=== PATIENT | female | born 1975 | race Caucasian/White ===

== ENCOUNTER 2017-02-20 17:40 | Emergency (ER) | payer SELFPAY ==
[2017-02-20] MEDS ORDERED: KETOROLAC TROMETHAMINE INJ 30 MG/ML VIAL IV ONE (18:04)
--- NOTE | 2017-02-20 18:07 | ED.PDOC ---
History of Present Illness - General Source: patient, RN notes reviewed, Vital Signs reviewed Exam Limitations: no limitations - History of Present Illness Initial Comments: Patient reports mid back pain for the past week. Left > Right. Denies any other symptoms. No fever, chills, [place], N/V/D, abd pain, urinary symptoms, numbness, tingling or weakness. Saw the chiropractor today and now pain is much worse. Timing/Duration: 1 week Quality/Severity: severe Back Pain Location: paraspinous muscles - CVA's Back Pain Radiation: other - None Method of Injury/Prior Injury: unknown Improving Factors: nothing Worsening Factors: movement, other - Deep breathing Associated Symptoms: muscle spasms <Coleen Eldridge - Last Filed: 02/20/17 18:56> <Swati Pierre - Last Filed: 02/20/17 20:22> - General Chief Complaint: Back Pain or Injury Stated Complaint: back pain Time Seen by Provider: 02/20/17 17:58 - History of Present Illness Allergies/Adverse Reactions: Allergies Diphenhydramine [From Benadryl] Allergy (Verified 02/20/17 17:54) Home Medications: Ambulatory Orders Lisinopril 10 mg PO DAILY 05/25/14 Norgestrel & Ethinyl Estradiol [Cryselle-28 0.3-30 mg-Mcg] 1 tab PO DAILY Ondansetron [Zofran Odt] 4 mg PO Q4H PRN #10 tab 05/11/16 Promethazine Tab [Phenergan Tablet] 25 mg PO Q6H PRN #10 tab 05/11/16 Cyclobenzaprine HCl [Flexeril] 10 mg PO TID PRN #30 tab 02/20/17 Ketorolac Tromethamine [Toradol Tabs] 10 mg PO Q6H PRN #20 tab 02/20/17 Review of Systems - Review of Systems Constitutional: States: no symptoms reported. Denies: chills, fever EENTM: States: no symptoms reported Respiratory: States: no symptoms reported. Denies: cough, short of breath Cardiology: States: no symptoms reported. Denies: chest pain, palpitations Gastrointestinal/Abdominal: States: no symptoms reported. Denies: abdominal pain, diarrhea, nausea, vomiting Genitourinary: States: no symptoms reported. Denies: dysuria, frequency, hematuria, pain Musculoskeletal: States: back pain Skin: States: no symptoms reported Neurological: States: no symptoms reported. Denies: headache, numbness, paresthesia, tingling, tremors, weakness <RichahollandColeen - Last Filed: 02/20/17 18:56> Past Medical History (General) - Patient Medical History Hx Hypertension: Yes Hx Diabetes: No Surgical History: no surgical history - Vaccination History Hx Tetanus, Diphtheria Vaccination: No Hx Influenza Vaccination: No Hx Pneumococcal Vaccination: No - Social History Hx Tobacco Use: No Hx Alcohol Use: No Hx Substance Use: No Hx Substance Use Treatment: No Hx Depression: No - Activities of Daily Living Hospice Agency (if applicable):: None - Female History Patient is a Female of Child Bearing Age (10 -59 yrs old): No Hx Last Menstrual Period: 04/20/14 Patient : No <Coleen Eldridge - Last Filed: 02/20/17 18:56> Family Medical History - Family History Mother Family History: No Known <JazmynColeen Last Filed: 02/20/17 18:56> Physical Exam - Physical Exam General Appearance: Agitated, Well Developed, Well Groomed, Well Hydrated, Well Nourished, Other - in obvious pain Neck Exam: non-tender, full range of motion, normal alignment, normal inspection Cardiovascular/Respiratory: regular rate, rhythm, no M/R/G, normal peripheral pulses, normal breath sounds, no respiratory distress Peripheral Pulses: dorsalis pedis,right: 2+, dorsalis pedis,left: 2+ Gastrointestinal/Abdominal: normal bowel sounds, non tender, soft, no organomegaly, no pulsatile mass Back Exam: no vertebral tenderness, CVA tenderness (L), muscle spasm Extremity Exam: no evidence of injury, normal range of motion, non-tender Neurologic: no motor/sensory deficits, alert, normal mood/affect, oriented x 3 Skin Exam: normal color, warm/dry <Coleen Eldridge - Last Filed: 02/20/17 18:56> Progress - Progress Progress: 02/20/17 18:38 Patient feeling better after the Toradol but has not tried to move. Had her take a slow deep breath and pain came back. This suggest a muscular cause of pain. Will given Flexeril while awaiting lab results. I urine has blood will need CT to r/o kidney stone but does not seem to be that. 02/20/17 18:[address] Pierre <Coleen Eldridge - Last Filed: 02/20/17 18:56> - Progress Progress: 02/20/17 20:16 Patient was doing much better after the Flexeril and was able to move and breathe without the severe pain she had previously. Although her urine had some blood in it, she is now on her period which would explain that. Since she had good results with Flexeril, I will send her home with a prescription for Toradol and Flexeril and give her 2 days off from work. I do not want her bending or twisting or lifting anything heavy, although I have asked her to be sure and get up and walk around and not stay in bed all day because of the pain. If the pain persists, she will follow up with her PCP. If it worsens, she will return to the ED. - Results/Orders Results/Orders: 02/20/17 02/20/17 02/20/17 17:45 19:00 20:16 Temperature 98.8 F Pulse Rate [ 89 62 60 pulse ox] Respiratory 20 16 20 Rate Blood Pressure 130/67 106/70 109/73 [Left Arm] O2 Sat by Pulse 96 94 L Oximetry 02/20/17 18:04 IV Care:Saline Lock per Protoc QSHIFT Laboratory Results WBC 8.9 K/mm3 (4.8-10.8) 02/20/17 18:25 RBC 4.99 M/mm3 (4.20-5.40) 02/20/17 18:25 Hgb 14.6 gm/dL (12.0-16.0) 02/20/17 18:25 Hct 43.0 % (36.0-47.0) 02/20/17 18:25 MCV 86.2 fl (81.0-99.0) 02/20/17 18:25 MCH 29.3 pg (27.0-31.0) 02/20/17 18:25 MCHC 34.0 g/dL (33.0-37.0) 02/20/17 18:25 RDW 12.6 % (11.5-14.5) 02/20/17 18:25 Plt Count 278 K/mm3 (130-400) 02/20/17 18:25 MPV 8.8 fl (7.40-10.4) 02/20/17 18:25 Absolute Neuts (auto) 5.40 K/uL (1.8-6.8) 02/20/17 18:25 Absolute Lymphs (auto) 2.60 K/uL (1.0-3.4) 02/20/17 18:25 Absolute Monos (auto) 0.70 K/uL (0.2-0.8) 02/20/17 18:25 Absolute Eos (auto) 0.10 K/uL (0.0-0.4) 02/20/17 18:25 Absolute Basos (auto) 0.10 K/uL (0.0-0.1) 02/20/17 18:25 Neutrophils % 61.2 % (42.0-78.0) 02/20/17 18:25 Lymphocytes % 29.0 % (20.0-50.0) 02/20/17 18:25 Monocytes % 8.2 % (2.0-9.0) 02/20/17 18:25 Eosinophils % 0.8 % (1.0-5.0) L 02/20/17 18:25 Basophils % 0.8 % (0.0-2.0) 02/20/17 18:25 Sodium 139 mmol/L (135-145) 02/20/17 18:25 Potassium 3.3 mmol/L (3.6-5.0) L 02/20/17 18:25 Chloride 103 mmol/L (101-111) 02/20/17 18:25 Carbon Dioxide 30 mmol/L (21-31) 02/20/17 18:25 Anion Gap 9.3 (12-18) L 02/20/17 18:25 BUN 12 mg/dL (7-18) 02/20/17 18:25 Creatinine 0.80 mg/dL (0.6-1.3) 02/20/17 18:25 BUN/Creatinine Ratio 15.0 (10-20) 02/20/17 18:25 Random Glucose 110 mg/dL (70-105) H 02/20/17 18:25 Serum Osmolality 277.9 mOsm/L (275-295) 02/20/17 18:25 Calcium 9.9 mg/dL (8.4-10.2) 02/20/17 18:25 Total Bilirubin 0.6 mg/dL (0.2-1.0) 02/20/17 18:25 AST 22 IU/L (10-42) 02/20/17 18:25 ALT 22 IU/L (10-60) 02/20/17 18:25 Alkaline Phosphatase 47 IU/L (42-121) 02/20/17 18:25 Serum Total Protein 7.4 gm/dL (6.4-8.2) 02/20/17 18:25 Albumin 4.2 g/dl (3.2-5.5) 02/20/17 18:25 Globulin 3.2 gm/dL (2.3-3.5) 02/20/17 18:25 Albumin/Globulin Ratio 1.3 (1.1-1.9) 02/20/17 18:25 Urine Color Yellow (Yellow) 02/20/17 19:25 Urine Appearance Clear (Clear) 02/20/17 19:25 Urine pH 7.0 (4.5-7.8) 02/20/17 19:25 Ur Specific [place] 1.020 (1.005-1.030) 02/20/17 19:25 Urine Protein Negative mg/dL 02/20/17 19:25 Urine Glucose (UA) Negative mg/dL (Negative) 02/20/17 19:25 Urine Ketones Negative mg/dL (NEGATIVE) 02/20/17 19:25 Urine Blood Moderate (Negative) H 02/20/17 19:25 Urine Nitrite Negative 02/20/17 19:25 Urine Bilirubin Negative (NEGATIVE) 02/20/17 19:25 Urine Urobilinogen 0.2 mg/dL (0.2-1.0) 02/20/17 19:25 Ur Leukocyte Esterase Negative (Negative) 02/20/17 19:25 Urine RBC 3-5 /hpf H 02/20/17 19:25 Urine WBC 0 /hpf 02/20/17 19:25 Ur Epithelial Cells 0-1 /hpf 02/20/17 19:25 Amorphous Sediment Trace 02/20/17 19:25 Urine Bacteria 0 02/20/17 19:25 <Swati Pierre K - Last Filed: 02/20/17 20:22> Departure <Folden,Coleen - Last Filed: 02/20/17 18:56> - Departure Time of Disposition: 20:19 Diet: resume usual diet <PierreSwati - Last Filed: 02/20/17 20:22> - Departure Clinical Impression: Muscle spasm of back Back pain Qualifiers: Back pain location: thoracic back pain Back pain laterality: bilateral Qualified Code(s): M54.6 - Pain in thoracic spine Disposition: Discharge to Home or Self Care Condition: Fair Departure Forms: ED Discharge - Pt. Copy, Patient Portal Self Enrollment Instructions: DI for Back Strain or Sprain Referrals: Reymundo Fried MD [Primary Care Provider] - 1-2 Weeks Prescriptions: Cyclobenzaprine HCl [Flexeril] 10 mg PO TID PRN #30 tab PRN Reason: Muscle Spasms Ketorolac Tromethamine [Toradol Tabs] 10 mg PO Q6H PRN #20 tab PRN Reason: Pain Home Medications: Ambulatory Orders Lisinopril 10 mg PO DAILY 05/25/14 Norgestrel & Ethinyl Estradiol [Cryselle-28 0.3-30 mg-Mcg] 1 tab PO DAILY Ondansetron [Zofran Odt] 4 mg PO Q4H PRN #10 tab 05/11/16 Promethazine Tab [Phenergan Tablet] 25 mg PO Q6H PRN #10 tab 05/11/16 Cyclobenzaprine HCl [Flexeril] 10 mg PO TID PRN #30 tab 02/20/17 Ketorolac Tromethamine [Toradol Tabs] 10 mg PO Q6H PRN #20 tab 02/20/17
[2017-02-20] MEDS: ONDANSETRON INJ 4 MG/2 ML VIAL IV ONE ×2 (18:14)
[2017-02-20] MEDS ORDERED: CYCLOBENZAPRINE HCL 10 MG TAB PO ONE (18:38)
[2017-02-20] MEDS ORDERED: CYCLOBENZAPRINE TAB (ER DISP) 10 MG TAB PO ONE (20:19)
[2017-02-20 20:58] VITALS: BP 99/63; TEMP 98.5; O2SAT 96
== END 2017-02-20 20:46 | disposition home or self-care (01) ==
LOC: ER 17:40
DX: M54.6 Pain in thoracic spine (principal); M62.830 Muscle spasm of back; I10 Essential (primary) hypertension; Z79.899 Other long term (current) drug therapy; Z88.8 Allergy status to other drugs, medicaments and biological substances
CPT/HCPCS: 36415; 80053; 81001; 85025; J1885; J2405

== ENCOUNTER 2018-06-17 17:29 | Emergency (ER) | payer SELFPAY ==
--- NOTE | 2018-06-17 18:03 | ED.PDOC ---
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 Timing/Duration: just prior to arrival Severity: mild Location: hands - right index finger Improving Factors: rest Worsening Factors: movement Associated Symptoms: other - pain Allergies/Adverse Reactions: Allergies Diphenhydramine [From Benadryl] Allergy (Verified 02/20/17 17:54) Home Medications: Ambulatory Orders Lisinopril 10 mg PO DAILY 05/25/14 Norgestrel & Ethinyl Estradiol [Cryselle-28 0.3-30 mg-Mcg] 1 tab PO DAILY Ondansetron [Zofran Odt] 4 mg PO Q4H PRN #10 tab 05/11/16 Promethazine Tab [Phenergan Tablet] 25 mg PO Q6H PRN #10 tab 05/11/16 Cyclobenzaprine HCl [Flexeril] 10 mg PO TID PRN #30 tab 02/20/17 Ketorolac Tromethamine [Toradol Tabs] 10 mg PO Q6H PRN #20 tab 02/20/17 Review of Systems - Review of Systems Constitutional: States: no symptoms reported EENTM: States: no symptoms reported Respiratory: States: no symptoms reported Cardiology: States: no symptoms reported Gastrointestinal/Abdominal: States: no symptoms reported Skin: States: see HPI Neurological: States: no symptoms reported Past Medical History (General) - Patient Medical History Hx Stroke: No Hx of COPD: No Hx Cardiac Disorders: No Hx Hypertension: No Hx Thyroid Disease: No Hx Diabetes: No Hx Cancer: No Surgical History: tonsillectomy - Vaccination History Hx Tetanus, Diphtheria Vaccination: No Hx Influenza Vaccination: No Hx Pneumococcal Vaccination: No Immunizations Up to Date: Yes - Social History Hx Tobacco Use: No Hx Alcohol Use: No Hx Substance Use: No Hx Substance Use Treatment: No Hx Depression: No - Female History Patient is a Female of Child Bearing Age (10 -59 yrs old): Yes Hx Last Menstrual Period: 06/01/18 Patient : No - Triage Comment ED Triage Comment: Alert, holding pressure to rt finger. Family Medical History - Family History Mother Family History: No Known Physical Exam - Physical Exam General Appearance: Alert, Comfortable, No apparent distress Eyes, Ears, Nose, Throat Exam: normal ENT inspection Neck: supple Cardiovascular/Chest: normal peripheral pulses, regular rate, rhythm, no murmur Respiratory: lungs clear, normal breath sounds Gastrointestinal/Abdominal: non tender, soft Back Exam: normal inspection, no CVA tenderness Extremity: no pedal edema, no calf tenderness Neurologic: no motor/sensory deficits, alert, oriented x 3 Skin Exam: warm/dry, normal color Skin Problem Location: other - right index finger Skin Character: other - 2 cm laceration Progress - Progress Progress: 06/17/18 18:05 Vital Signs - 8 hr 06/17/18 17:38 Temperature 97.8 F Pulse Rate [ 89 monitor] Respiratory 22 Rate Blood Pressure 131/75 [Left Arm] O2 Sat by Pulse 98 Oximetry Departure - Departure Clinical Impression: Laceration of finger of right hand Qualifiers: Encounter type: initial encounter Finger: index finger Damage to nail status: without damage Foreign body presence: without foreign body Qualified Code(s): S61.210A - Laceration without foreign body of right index finger without damage to nail, initial encounter Time of Disposition: 18:50 Disposition: Discharge to Home or Self Care Condition: Fair Departure Forms: ED Discharge - Pt. Copy, Patient Portal Self Enrollment Instructions: DI for Laceration Repair, DI for Laceration Repair -- Simple, DI for Wound Infection Referrals: Reymundo Fried MD [Primary Care Provider] - 1-2 Weeks Home Medications: Ambulatory Orders Lisinopril 10 mg PO DAILY 05/25/14 Norgestrel & Ethinyl Estradiol [Cryselle-28 0.3-30 mg-Mcg] 1 tab PO DAILY Ondansetron [Zofran Odt] 4 mg PO Q4H PRN #10 tab 05/11/16 Promethazine Tab [Phenergan Tablet] 25 mg PO Q6H PRN #10 tab 05/11/16 Cyclobenzaprine HCl [Flexeril] 10 mg PO TID PRN #30 tab 02/20/17 Ketorolac Tromethamine [Toradol Tabs] 10 mg PO Q6H PRN #20 tab 02/20/17 Additional Instructions: Removal of 2017 [facility];May take ALEVE(over the counter )1-2 tablet by mouth am/pm for pain as needed
[2018-06-17] MEDS ORDERED: TETANUS,DIPHTHERIA,PERTUSSIS 1 EA SYG IM ONE (18:05)
[2018-06-17] MEDS ORDERED: LIDOCAINE 1% 10 ML VIAL INJ ONE (18:23)
[2018-06-17] MEDS ORDERED: NEOMYCIN-BACITRACIN-POLYMYXIN 0.9 GM UD TOP ONE (18:23)
[2018-06-17] MEDS ORDERED: CHLORHEXIDINE GLUCONATE 4 % 15 ML UD TOP ONE (18:24)
[2018-06-17] MEDS ORDERED: HYDROCOD/APAP 7.5/325 (ER DISP) #3 TAB PO ONE (18:51)
[2018-06-17 19:13] VITALS: BP 129/54; TEMP 98.1; O2SAT 99
== END 2018-06-17 19:10 | disposition home or self-care (01) ==
LOC: ER 17:29
DX: S61.210A Laceration without foreign body of right index finger without damage to nail, initial encounter (principal); Z23 Encounter for immunization; Z79.899 Other long term (current) drug therapy; Z88.8 Allergy status to other drugs, medicaments and biological substances; W45.8XXA Other foreign body or object entering through skin, initial encounter; Y93.89 Activity, other specified; Y92.9 Unspecified place or not applicable

== ENCOUNTER → 2018-10-01 | Outpatient (CLI) | payer OTHER ==
--- NOTE | 2018-10-01 11:39 | MRI ---
EXAM DESCRIPTION: Lumbar Spine w/o Contrast : Magnetic Resonance Imaging. CLINICAL HISTORY: RADICULOPATHY LUMBAR REGION COMPARISON: MRI lumbar at outside imaging facility 10/26/2016. TECHNIQUE: Multiplanar, multiple standard sequences, non contrast MRI, lumbar spine. FINDINGS: L5-S1: Disc space loss and desiccation signal. Type II Modic endplate reactive changes anterior and mid endplates. Schmorl's nodes superior right paracentral L5 endplate. 8.5 mm right paracentral disc herniation abutting the right L5-S1 facet with mass effect on the right ventral thecal sac and posterior displacement of the right S1 nerve root with disc also encroaching on the right subarticular recess which is stenotic. Progressed since the prior study. Severe right paracentral canal stenosis. Progressed since the prior study. Minimal flavum ligament hypertrophy and minimal arthrosis left facet. Moderate narrowing of the right foramen and mild narrowing of the left foramen. L4-5: Disc space preserved with desiccation signal. Posterior midline hyperintense T2 annular fissure. Posterior broad-based bulge abutting the thecal sac. Bilateral flavum ligament hypertrophy. AP canal diameter 9 mm. Facets are negative. Moderate narrowing left foramen and mild narrowing right foramen. L3-4: Disc space preserved with normal signal in the disc. Bilateral hypertrophied flavum ligaments. Mild canal narrowing. Bilateral foramina are patent. Facets are negative. L2-3: Normal signal in the disc with disc space preserved. Mild hypertrophy of the flavum ligaments. Borderline mild central canal narrowing. Facets are negative and foramen are patent. L1-2: Disc space preserved with disc normal signal. Canal and foramina are patent. Posterior elements are negative. T12-L1: Disc space preserved with disc normal signal. Canal and foramina patent. Posterior elements negative. Conus terminates T12-L1. Anatomic alignment and curvature of the spine. Paravertebral soft tissues : 1.25 mm cyst posterior lower pole right kidney.. Normal marrow signal in the remaining vertebral bodies and the posterior elements. Vertebral bodies are not compressed at any level. IMPRESSION: 1. Right posterior L5-S1 disc herniation impressing on the thecal sac and the right descending S1 nerve with right lateral recess stenosis. Severe right paracentral canal stenosis. Progressed since the prior study in 2016. No foraminal stenosis. 2. Posterior midline annular fissure L4-5 with posterior broad-based bulge and borderline mild central canal stenosis. Stable since the prior study. 3. Canal narrowing at some levels due to hypertrophy flavum ligaments. 4. 1.25 mm cyst posterior cortex lower pole right kidney. Stable since the prior study. Electronically signed by: Michael Marquez MD 10/01/2018 11:37 AM [facility]
== END ==
LOC: MRI 08:00
PROVIDERS: ATTEND Physical Medicine & Rehabilitation
DX: M51.36 Other intervertebral disc degeneration, lumbar region (principal); M51.06 Intervertebral disc disorders with myelopathy, lumbar region; M54.16 Radiculopathy, lumbar region; N28.1 Cyst of kidney, acquired

== ENCOUNTER → 2020-04-08 | Outpatient (CLI) | payer MEDICAID, MEDICARE, OTHER | LOC: GMAJS 16:54 | PROVIDERS: ATTEND Physician Assistant | DX: I10 Essential (primary) hypertension (principal) ==

== ENCOUNTER → 2020-06-17 | Outpatient (CLI) | payer MEDICAID ==
--- NOTE | 2020-06-17 17:35 | CT ---
EXAM DESCRIPTION: Abdomen/Pelvis w/wo Contrast: Computed Tomography. CLINICAL HISTORY: generalized abd pain. Abdominal guarding. Positive Murillo's sign. COMPARISON: CT scan of the abdomen IV contrast. April 2016. MRI scan lumbar spine September 2018. TECHNIQUE: Spiral-axial scans at 5 x 5 mm intervals through the abdomen and pelvis before and after 75 mL Optiray 320 nonionic IV contrast. Coronal and sagittal 2.0 mm reconstructions. 5 mm Delayed helical-axial scans, liver through the pubic symphysis. No adverse reactions. Total Exam DLP 3442 mGy - cm. This exam was performed according to our departmental CT dose-optimization program which includes automated exposure control, adjustment of the mA and/or kV according to patient size and/or use of iterative reconstruction technique; to reduce radiation dose to as low as reasonably achievable (ALARA). FINDINGS: Lung bases and pleura: Posterior dependent atelectasis in the right base. Bilateral retro-muscular breast implants. Liver, Stomach, Spleen, Adrenal Glands: Liver minimally enlarged, 18.9 cm right lobe long axis craniocaudal. Heterogeneous density and enhancement. Stomach and other solid organs are negative. Pancreas, Gallbladder, Ducts: Fatty density inferior to the fundus and lateral to the anterior wall of the gallbladder abutting the splenic flexure the colon may represent fatty stranding from the gallbladder. No radiodense stones or significant wall thickening. Common duct and pancreas are negative. Kidneys and Ureters: Small subcentimeter cortical cyst inferior right kidney abutting a simple 12 mm cyst in the inferior pole cortex. Otherwise bilateral kidneys are unremarkable. Normal caliber of the ureters. Mesentery: Findings adjacent to the gallbladder as described. No free intraperitoneal air or fluid. Aorta: Unremarkable. Small Bowel: More fluid distally minimal gas but no air-fluid levels or distention. Terminal Ileum/Cecum: Normal caliber including the appendix with no inflammatory changes or fluid. Colon: Moderate fecal matter ascending colon and transverse colon with decompression descending colon and sigmoid. Focal gaseous distention sigmoid which is minimally redundant. No complications. Pelvic Organs: Large tampon in the vagina deviated to the right of midline. Heterogeneous complex appearance of the cervix which appears slightly enlarged and indenting cyst. Normal position of uterus. Bilateral ovaries seen. Trace amount of fluid in the cul-de-sac. Spine and Bony Pelvis: Advanced spondylosis and disc space loss L5-S1. Posterior bulging disc remnant and spurs and significant narrowing of the canal and bilateral foramina. This has progressed since prior disc herniation and spondylosis seen in September 2018. Minimal spondylosis in the included thoracic spine. Abdominal Wall/Back Soft Tissues: Small bilateral inguinal hernias not containing bowel. Diastases at the umbilicus not containing bowel.. IMPRESSION: 1. No wall thickening of the gallbladder and no radiodense stones, but 70-80% of gallstones are not radiodense. Minimal stranding abutting the gallbladder can indicate cholecystitis, either calculus or acalculous. Common bile duct and pancreas are negative. Minimal enlargement and heterogeneous steatosis of the liver. Dr. Prabhakar is getting a surgical consult. 2. Cervix is slightly enlarged and heterogeneous containing fluid and cysts. Large air-filled tampon in the vagina. Trace amount of fluid in the cul-de-sac. Bilateral ovaries visualized. Correlate for gynecological clinical findings. Consider pelvic ultrasound. 3. Renal cysts. Increasing spondylosis in the L5-S1 level with significant narrowing of the canal and foramina. Moderate constipation proximal colon. . CRITICAL COMMUNICATION: The critical value was communicated directly by Dr. Marquez via phone call, with Dr. Stefano Prabhakar, at approximately 1640 hours, on June 17, 2020. Electronically signed by: Michael Marquez MD 06/17/2020 5:33 PM CDT
== END | disposition home or self-care (01) ==
LOC: CT 15:51
PROVIDERS: ATTEND Family Medicine
DX: R10.84 Generalized abdominal pain (principal)

== ENCOUNTER 2020-07-13 18:35 | Emergency (ER) | payer MEDICAID ==
[2020-07-13] MEDS ORDERED: LIDOCAINE/PRILOCAINE 2.5% 30 GM TUBE TOP ONE (18:53)
[2020-07-13] MEDS ORDERED: LIDOCAINE 1% 10 ML VIAL INJ ONE (19:22)
--- NOTE | 2020-07-13 19:41 | ED.PDOC ---
History of Present Illness - General Time Seen by Provider: 07/13/20 18:39 Source: patient Exam Limitations: no limitations - History of Present Illness Initial Comments: rhd female cut finger opening can of soup 30 minutes prior to arrival. tetanus up todate. Timing/Duration: just prior to arrival Severity: moderate Location: hands Improving Factors: immobilization, other - ice Worsening Factors: movement Associated Symptoms: denies symptoms Allergies/Adverse Reactions: Allergies Diphenhydramine [From Benadryl] Allergy (Verified 02/20/17 17:54) Home Medications: Ambulatory Orders Lisinopril 10 mg PO DAILY 05/25/14 Norgestrel & Ethinyl Estradiol [Cryselle-28 0.3-30 mg-Mcg] 1 tab PO DAILY 05/11/16 Ondansetron [Zofran Odt] 4 mg PO Q4H PRN #10 tab 05/11/16 Promethazine Tab [Phenergan Tablet] 25 mg PO Q6H PRN #10 tab 05/11/16 Cyclobenzaprine HCl [Flexeril] 10 mg PO TID PRN #30 tab 02/20/17 Ketorolac Tromethamine [Toradol Tabs] 10 mg PO Q6H PRN #20 tab 02/20/17 Review of Systems - Review of Systems Constitutional: Denies: chills, fever EENTM: Denies: blurred vision Respiratory: Denies: cough, short of breath Cardiology: Denies: chest pain, palpitations Gastrointestinal/Abdominal: Denies: abdominal pain, nausea, vomiting Genitourinary: Denies: frequency Musculoskeletal: States: see HPI. Denies: back pain Skin: States: see HPI Neurological: States: anxiety. Denies: headache, numbness, paresthesia, tingling, tremors, weakness Hematologic/Lymphatic: Denies: anemia, easy bleeding, easy bruising Past Medical History (General) - Patient Medical History Hx Stroke: No Hx of COPD: No Hx Cardiac Disorders: No Hx Hypertension: No Hx Thyroid Disease: No Hx Diabetes: No Hx Cancer: No - Vaccination History Hx Tetanus, Diphtheria Vaccination: No Hx Influenza Vaccination: No Hx Pneumococcal Vaccination: No - Social History Hx Tobacco Use: No Hx Alcohol Use: No Hx Substance Use: No Hx Substance Use Treatment: No Hx Depression: No - Female History Hx Last Menstrual Period: 06/01/18 Patient : No Family Medical History - Family History Mother Family History: No Known Physical Exam - Physical Exam General Appearance: Alert, Comfortable, No apparent distress, Well Developed, Well Groomed, Well Hydrated, Well Nourished Eyes, Ears, Nose, Throat Exam: PERRL/EOMI, normal ENT inspection Neck: non-tender, full range of motion, supple Cardiovascular/Chest: normal peripheral pulses, regular rate, rhythm, no edema Respiratory: chest non-tender, lungs clear, normal breath sounds, no respiratory distress, no accessory muscle use Gastrointestinal/Abdominal: normal bowel sounds, non tender Comments: 1 cm linear laceration to pickett aspect of right 4th finger. no evidence of tendon injury. Symmetrically palpable radial and ulnar pulses. Capillary refill <2 seconds to all digits. Intact sensation to light touch of the radial, median and ulnar nerves demonstrated by testing in the dorsal web space of the thumb, the distal palmar aspect of the index finger, and the lateral surface of the fifth finger. 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 Intact recurrent median nerve as demonstrated by ability to move thumb fully through opposition, abduction and flexion. Procedures - Laceration/Wound Repair Right Finger Wound's Depth, Shape: superficial Wound Explored: clean Irrigated w/ Saline (cc's): 250 Anesthesia: 1% Lidocaine Volume Anesthetic (cc's): 3 Wound Repaired With: sutures Suture Size/Type: 4:0, prolene Number of Sutures: 2 Layer Closure?: No Sterile Dressing Applied?: Yes Departure - Departure Clinical Impression: Laceration of finger of right hand Qualifiers: Encounter type: initial encounter Finger: ring finger Damage to nail status: without damage Foreign body presence: without foreign body Qualified Code(s): S61.214A - Laceration without foreign body of right ring finger without damage to nail, initial encounter Time of Disposition: 19:40 Disposition: Discharge to Home or Self Care Instructions: Laceration Repair, Wound Care (DC) Referrals: Reymundo Fried MD [Primary Care Provider] - 1-5 Days Home Medications: Ambulatory Orders Lisinopril 10 mg PO DAILY 05/25/14 Norgestrel & Ethinyl Estradiol [Cryselle-28 0.3-30 mg-Mcg] 1 tab PO DAILY 05/11/16 Ondansetron [Zofran Odt] 4 mg PO Q4H PRN #10 tab 05/11/16 Promethazine Tab [Phenergan Tablet] 25 mg PO Q6H PRN #10 tab 05/11/16 Cyclobenzaprine HCl [Flexeril] 10 mg PO TID PRN #30 tab 02/20/17 Ketorolac Tromethamine [Toradol Tabs] 10 mg PO Q6H PRN #20 tab 02/20/17 Additional Instructions: return 7 days for suture removal, return sooner if concern for infection
[2020-07-13] MEDS ORDERED: TETANUS,DIPHTHERIA,PERTUSSIS 1 EA SYG IM ONE (21:36)
[2020-07-14 00:32] VITALS: TEMP 98.3
[2020-07-14 00:34] VITALS: BP 142/84; O2SAT 97
== END 2020-07-13 20:01 | disposition home or self-care (01) ==
LOC: ER 18:35
DX: S61.214A Laceration without foreign body of right ring finger without damage to nail, initial encounter (principal); W45.8XXA Other foreign body or object entering through skin, initial encounter; Y92.9 Unspecified place or not applicable; Y93.89 Activity, other specified; Z79.899 Other long term (current) drug therapy; Z88.8 Allergy status to other drugs, medicaments and biological substances

== ENCOUNTER 2020-11-07 14:36 | Emergency (ER) | payer OTHER ==
[2020-11-07] MEDS ORDERED: SODIUM CHLORIDE 0.9% 1000ML 1,000 ML IVS PRN (14:48)
[2020-11-07] MEDS ORDERED: SODIUM CHLORIDE 0.9% (FLUSH) 10 ML SYG IV PRN (14:48)
[2020-11-07 15:02] VITALS: BP 162/99; TEMP 97.6; O2SAT 97
--- NOTE | 2020-11-07 15:07 | ED.PDOC ---
History of Present Illness - General Chief Complaint: Behavioral / Psych Stated Complaint: distraught d/t finding daughter this am Time Seen by Provider: 11/07/20 14:39 Source: patient, RN notes reviewed, Vital Signs reviewed, EMS notes reviewed, family, RN/MD Exam Limitations: no limitations - History of Present Illness Initial Comments: Pt presents to ED with emotional distress from recently finding out her daughter . States family had not talked to her daughter since last night and they found her at daughters house earlier this morning. It is unknown at this time how she and body was taken for autopsy. Pt states she has been crying uncontrollably since. She denies fever, CP, SOB or recent illness. Denies thoughts of hurting herself or others. Requesting medication for her nerves. Allergies/Adverse Reactions: Allergies Diphenhydramine [From Benadryl] Allergy (Verified 02/20/17 17:54) Home Medications: Ambulatory Orders Lisinopril 10 mg PO DAILY 05/25/14 Norgestrel & Ethinyl Estradiol [Cryselle-28 0.3-30 mg-Mcg] 1 tab PO DAILY 05/11/16 Ondansetron [Zofran Odt] 4 mg PO Q4H PRN #10 tab 05/11/16 Promethazine Tab [Phenergan Tablet] 25 mg PO Q6H PRN #10 tab 05/11/16 Cyclobenzaprine HCl [Flexeril] 10 mg PO TID PRN #30 tab 02/20/17 Ketorolac Tromethamine [Toradol Tabs] 10 mg PO Q6H PRN #20 tab 02/20/17 LORazepam [Ativan] 1 mg PO Q8H PRN 5 Days #15 tab 11/07/20 LORazepam [Ativan] 1 mg PO Q8H PRN 5 Days #15 tab 11/07/20 Review of Systems - Review of Systems Constitutional: Denies: chills, fever Respiratory: Denies: cough, short of breath Cardiology: Denies: edema, palpitations, syncope Gastrointestinal/Abdominal: Denies: abdominal pain, nausea, vomiting Genitourinary: Denies: dysuria, frequency, hematuria Musculoskeletal: Denies: back pain Skin: Denies: rash Neurological: States: anxiety, depressed. Denies: headache All other Systems: Reviewed and Negative Past Medical History (General) - Patient Medical History Hx Stroke: No Hx of COPD: No Hx Cardiac Disorders: No Hx Hypertension: No Hx Thyroid Disease: No Hx Diabetes: No Hx Cancer: No - Vaccination History Hx Tetanus, Diphtheria Vaccination: No Hx Influenza Vaccination: No Hx Pneumococcal Vaccination: No - Social History Hx Tobacco Use: No Hx Alcohol Use: No Hx Substance Use: No Hx Substance Use Treatment: No Hx Depression: No - Female History Hx Last Menstrual Period: 06/01/18 Patient : No Family Medical History - Family History Mother Family History: No Known Physical Exam - Physical Exam General Appearance: Alert, Other - Pt tearful, cooperative Ears, Nose, Throat: normal pharynx Neck: non-tender, full range of motion, supple Respiratory: chest non-tender, lungs clear, normal breath sounds, no respiratory distress Cardiovascular/Chest: regular rate, rhythm, no murmur Gastrointestinal/Abdominal: non tender, soft, no pulsatile mass Back Exam: no vertebral tenderness Extremity: non-tender, normal inspection Neurologic: no motor/sensory deficits, alert, depressed affect Skin Exam: normal color, warm/dry Progress - Progress Progress: 11/07/20 15:09 Pt presents to ED a few hours after finding out that her daughter . She denies any SI, HI, hallucinations. I have discussed with her treatment with benzos for short course. She feels comfortable going home and will f/u with her pcp in 1-2 days for continued evaluation. Family is here with her. Departure - Departure Clinical Impression: Acute stress reaction with predominately emotional disturbance Time of Disposition: 15:11 Disposition: Discharge to Home or Self Care Condition: Fair Departure Forms: ED Discharge - Pt. Copy, Patient Portal Self Enrollment Instructions: DI for Psychosis, Anxiety, Adult (DC) Diet: resume usual diet Activity: increase activity as tolerated Referrals: Reymundo Fried MD [Primary Care Provider] - 1-2 Days Prescriptions: LORazepam [Ativan] 1 mg PO Q8H PRN 5 Days #15 tab PRN Reason: Anxiety LORazepam [Ativan] 1 mg PO Q8H PRN 5 Days #15 tab PRN Reason: Anxiety Home Medications: Ambulatory Orders Lisinopril 10 mg PO DAILY 05/25/14 Norgestrel & Ethinyl Estradiol [Cryselle-28 0.3-30 mg-Mcg] 1 tab PO DAILY 05/11/16 Ondansetron [Zofran Odt] 4 mg PO Q4H PRN #10 tab 05/11/16 Promethazine Tab [Phenergan Tablet] 25 mg PO Q6H PRN #10 tab 05/11/16 Cyclobenzaprine HCl [Flexeril] 10 mg PO TID PRN #30 tab 02/20/17 Ketorolac Tromethamine [Toradol Tabs] 10 mg PO Q6H PRN #20 tab 02/20/17 LORazepam [Ativan] 1 mg PO Q8H PRN 5 Days #15 tab 11/07/20 LORazepam [Ativan] 1 mg PO Q8H PRN 5 Days #15 tab 11/07/20
== END 2020-11-07 15:45 | disposition home or self-care (01) ==
LOC: ER 14:36
DX: F43.0 Acute stress reaction (principal); Z88.8 Allergy status to other drugs, medicaments and biological substances